=== PATIENT | male | born 1975 | race Caucasian/White ===

== ENCOUNTER 2017-04-06 06:23 | Day surgery (SDC) | payer OTHER ==
[~2017-04-06] VITALS: Ht 188 cm; Wt 104.2 kg
[~2017-04-06 06:23] MED LIST: SYNTHROID75 MCG PO
[2017-04-06 07:08] VITALS: BP 127/64
[2017-04-06 11:22] VITALS: BP 108/68
[2017-04-06 11:52] VITALS: BP 101/62
== END 2017-04-06 12:00 | disposition home or self-care (01) ==
LOC: SDC 06:23
DX: S83.242A Other tear of medial meniscus, current injury, left knee, initial encounter (principal); M22.42 Chondromalacia patellae, left knee; M11.262 Other chondrocalcinosis, left knee; E78.5 Hyperlipidemia, unspecified; X58.XXXA Exposure to other specified factors, initial encounter; E03.9 Hypothyroidism, unspecified; N18.9 Chronic kidney disease, unspecified; R53.83 Other fatigue; K21.9 Gastro-esophageal reflux disease without esophagitis
CPT/HCPCS: J0131; J2250; J2405; J2795; J3010